=== PATIENT | female | born 1985 | race Two or more races ===

== ENCOUNTER 2019-07-31 12:10 | Inpatient (IN) | payer OTHER ==
[~2019-07-31] VITALS: Ht 149.9 cm; Wt 68.9 kg
[2019-07-31] MEDS ORDERED: MAG HYDROX/ALUMINUM HYD/SIMETH 30 ML ORAL.SUSP PO PRN ×2 (12:45→17:30)
[2019-07-31] MEDS ORDERED: NALBUPHINE 10 MG/ML AMPUL. IV PRN (12:45)
[2019-07-31] MEDS ORDERED: 0.9 % SODIUM CHLORIDE 10 ML DISP.SYRIN. IV PRN ×3 (12:45→17:30)
[2019-07-31] MEDS ORDERED: TERBUTALINE 1 MG/ML VIAL. SQ PRN (12:45)
[2019-07-31] MEDS ORDERED: fentaNYL PF VIAL 100 MCG/2 ML VIAL IV PRN (12:45)
[2019-07-31] MEDS ORDERED: OXYTOCIN 30 UNIT/500 ML PREMIX 500 ML IV PRN ×2 (12:45→17:30)
[2019-07-31] MEDS ORDERED: LIDOCAINE 1% PF 30 ML VIAL. INJ PRN (12:45)
[2019-07-31 12:50] VITALS: BP 137/83
[2019-07-31 13:17] LABS: BILIRUBIN,URINE NEGATIVE (NEG); CLARITY,URINE CLEAR; COLOR,URINE YELLOW; CREATININE,RANDOM URINE < 13.0 mg/dL (Not Establ.); NITRITE,URINE NEGATIVE (NEG); PH,URINE 6.5; PROTEIN,URINE NEGATIVE (NEG-TRACE); UROBILINOGEN,URINE 0.2 mg/dL (0.2 mg/dL)
[2019-07-31 13:26] LABS: BASO # 0.1 x10^3/uL (0.0-0.2); BASO % 1 % (0-3); EOS # 0.1 x10^3/uL (0.0-0.7); EOS % 1 % (0-3); HEMATOCRIT 37.3 % (36.0-47.0); HEMOGLOBIN 12.5 g/dL (12.0-15.5); LYMPH # 2.6 x10^3/uL (1.0-4.8); LYMPH % 33 % (24-48); MEAN CORPUSCULAR HEMOGLOBIN 30 pg (25-35); MEAN CORPUSCULAR HGB CONC 34 g/dL (31-37); MEAN CORPUSCULAR VOLUME 88 fL (79-100); MONO # 0.7 x10^3/uL (0.0-1.1); MONO % 9 % (0-9); NEUT # 4.5 x10^3/uL (1.8-7.7); NEUT % 56 % (31-73); PLATELET COUNT 163 x10^3/uL (140-400); RED BLOOD COUNT 4.26 x10^6/uL (3.50-5.40); RED CELL DISTRIBUTION WIDTH 13.5 % (11.5-14.5)
[2019-07-31 13:41] LABS: ALBUMIN 2.7 g/dL (3.4-5.0); ALBUMIN/GLOBULIN RATIO 0.6 (1.0-1.7); CALCIUM 8.6 mg/dL (8.5-10.1); CREATININE 0.6 mg/dL (0.6-1.0); GFR 115.9; POTASSIUM 3.6 mmol/L (3.5-5.1); TOTAL BILIRUBIN 0.3 mg/dL (0.2-1.0); URIC ACID 5.2 mg/dL (2.6-6.0)
[2019-07-31] MEDS ORDERED: PNV1TABL25 PO (13:47)
[2019-07-31 13:50] LABS: SQUAMOUS EPITHELIAL CELL,UR MOD /LPF
[2019-07-31 13:51] LABS: BACTERIA,URINE MODERATE /HPF (0-FEW)
[2019-07-31] MEDS: IV RINGERS,LACTATED 1000ML 1,000 ML IV SCH ×2 (14:28→21:00)
[2019-07-31] MEDS: OXYTOCIN 30 UNIT/500 ML PREMIX 500 ML IV PRN ×2 (14:36→20:22)
--- NOTE | 2019-07-31 17:29 | PDOC1 ---
OB - History Hx of Present Care: Good Care Obstetrical Complications: Gestational Hypertension Medical Complications: None Past Family/Social History * Past Medical, Surgical, Family and Obstetric Histories reviewed from chart. Rubella: Immune RPR/VDRL: Negative GBS Status: Negative HBsAG: Negative OB - Chief Complaint & HPI Date of Admission: Date of Admission: Jul 31, 2019 at 12:10 Chief Complaint/History : 4 Para: 3 EGA: 38 Reason for admission: induction of labor Indication for induction: other (Gestational HTN) Admission Nurse Assessment Rev: Yes OB - Admission Exam Physical Exam Vitals: VS - Last 72 Hours, by Label Date Time Temp Pulse Resp B/P (MAP) Pulse Ox O2 Delivery O2 Flow Rate FiO2 07/31/19 12:50 98.1 63 20 137/83 (101) 98.1 HEENT: Normal Heart: Regular Rate Lungs: Clear Abdomen: Gravid, Non tender, Soft Extremities: Edema Reflexes: Normal Cervical Dilatation: 2cm Effacement: 75% Station: -3 Membranes: Intact Heart Rate: Normal Accelerations: Accelerations Present Decelerations: No decelerations Contractions on Admission: None Text A: 38 wks IUP Gestational HTN P: Admit for IOL pitocin for gestational HTN. WALTER PLUMMER Jr, MD Jul 31, 2019 17:29
[2019-07-31] MEDS ORDERED: HYDROCORTISONE 1% TOPICAL OINTMENT 30GM TUBE. TP PRN (17:30)
[2019-07-31] MEDS ORDERED: PHENYLEPH/MINERAL OIL/PETROLAT RECTAL OINTMENT TUBE. RC PRN (17:30)
[2019-07-31] MEDS ORDERED: MMR per PROTOCOL. MC PRN (17:30)
[2019-07-31] MEDS ORDERED: BENZOCAINE 20% TOPICAL AEROSOL SPRAY 57GM CAN. TP PRN (17:30)
[2019-07-31] MEDS ORDERED: ACETAMINOPHEN 325 MG TABLET. PO PRN (17:30)
[2019-07-31] MEDS ORDERED: MAGNESIUM HYDROXIDE 2,400 MG/30 ML ORAL.SUSP. PO PRN (17:30)
[2019-07-31] MEDS ORDERED: ZOLPIDEM 5 MG TABLET. PO PRN (17:30)
[2019-07-31] MEDS ORDERED: diphenhydrAMINE HCL 25 MG CAPSULE PO PRN (17:30)
[2019-07-31] MEDS ORDERED: SIMETHICONE 80 MG TAB.CHEW PO PRN (17:30)
--- NOTE | 2019-07-31 17:30 | PDOC ---
VAGINAL DELIVERY DATE DATE: 07/31/19 TIME: 17:29 : 4 Para: 4 EGA: 38 VAGINAL DELIVERY: VTX VACCUM ASSISTED: No PLACENTA: Spontaneous 6/8 SEX: Male WEIGHT Weight [6 lbs. 9 oz ] Nuchal Cord: No Amniotic Fluid: Clear PAIN: Natural EPISIOTOMY: No EXTENSION: No EBL 300 ml COMPLICATIONS none CONDITION pt. stable Signs of Intrauterine Infectio: None Shoulder Dystocia: No WALTER PLUMMER Jr, MD Jul 31, 2019 17:30
[2019-07-31] MEDS: IBUPROFEN 400 MG TABLET. PO PRN (19:29)
[2019-07-31] MEDS ORDERED: miSOPROStol 200 MCG TABLET PR ONE (20:15)
[2019-08-01] VITALS (9 sets, daily range): BP systolic 109–140; BP diastolic 52–92
--- NOTE | 2019-08-01 01:05 | NUR ---
Fundus checked at this time. Pt. bleeding filled up her pad/underwear. Pt. gotten up to the bathroom, pads changed, no active bleeding noted while on the toilet, pt. voided at this time. Dark blood noted in the bottom of the toilet. Pt. helped back to bed. VS taken and stable. Pads weighed and weighed 85 gm. Report given to charge nurse. Charge nurse called Dr. Cuevas. Orders received for stat H&H and 30 units in 500 ml of pitocin.
[2019-08-01] MEDS: OXYTOCIN 30 UNIT/500 ML PREMIX 500 ML IV PRN ×2 (01:25→04:24)
[2019-08-01 01:51] LABS: HEMATOCRIT 29.1 % (36.0-47.0); HEMOGLOBIN 9.6 g/dL (12.0-15.5); RED BLOOD COUNT 3.31 x10^6/uL (3.50-5.40); RED CELL DISTRIBUTION WIDTH 13.2 % (11.5-14.5); WHITE BLOOD COUNT 14.7 x10^3/uL (4.0-11.0)
--- NOTE | 2019-08-01 03:00 | NUR ---
Fundal check done. Fundus firm, midline, pt. had moderate bleeding with massage. Pt. cleaned up, and gotten up to the bathroom, no active bleeding on the toilet noted. Pads weighed and weighed 160 gm. Charge nurse notified. Pitocin increased to 300 ml/hr. Dr. Cuevas notified of blood loss, and CBC results. No new orders received. VSS.
[2019-08-01] MEDS: IV RINGERS,LACTATED 1000ML 1,000 ML IV SCH ×2 (05:00→13:00)
[2019-08-01 07:09] LABS: BASO # 0.1 x10^3/uL (0.0-0.2); BASO % 0 % (0-3); EOS # 0.1 x10^3/uL (0.0-0.7); EOS % 1 % (0-3); HEMATOCRIT 26.9 % (36.0-47.0); LYMPH # 3.2 x10^3/uL (1.0-4.8); LYMPH % 25 % (24-48); MEAN CORPUSCULAR HEMOGLOBIN 29 pg (25-35); MEAN CORPUSCULAR HGB CONC 33 g/dL (31-37); MEAN CORPUSCULAR VOLUME 88 fL (79-100); MONO # 0.9 x10^3/uL (0.0-1.1); MONO % 7 % (0-9); NEUT # 8.4 x10^3/uL (1.8-7.7); NEUT % 66 % (31-73); PLATELET COUNT 145 x10^3/uL (140-400); RED BLOOD COUNT 3.07 x10^6/uL (3.50-5.40); RED CELL DISTRIBUTION WIDTH 13.2 % (11.5-14.5); WHITE BLOOD COUNT 12.7 x10^3/uL (4.0-11.0)
[2019-08-01] MEDS: DOCUSATE SODIUM 100 MG CAPSULE. PO PRN (08:58)
[2019-08-01] MEDS: FERROUS SULFATE 325 MG TABLET. PO SCH ×2 (08:58→17:00)
--- NOTE | 2019-08-01 09:08 | PDOC ---
OB Progress Note Date of Service 08/01/19 Time of Evaluation 0905 Notes Pt. feeling better. She had moderate bleeding last night. Hgb stable. Pt. asymptomatic. Scant bleeding this am. Lab Laboratory Tests Test 07/31/19 12:30 07/31/19 13:03 08/01/19 01:45 08/01/19 06:42 Urine Collection Type Unknown Urine Color Yellow Urine Clarity Clear Urine pH 6.5 Urine Specific [place] <=1.005 Urine Protein Negative mg/dL (NEG-TRACE) Urine Glucose (UA) Negative mg/dL (NEG) Urine Ketones (Stick) Negative mg/dL (NEG) Urine Blood Negative (NEG) Urine Nitrite Negative (NEG) Urine Bilirubin Negative (NEG) Urine Urobilinogen Dipstick 0.2 mg/dL (0.2 mg/dL) Urine Leukocyte Esterase Negative (NEG) Urine RBC 1-2 /HPF (0-2) Urine WBC 1-4 /HPF (0-4) Urine Squamous Epithelial Cells Mod /LPF Urine Bacteria Moderate /HPF (0-FEW) Urine Random Creatinine < 13.0 mg/dL (Not Establ.) Urine Random Total Protein < 6.0 mg/dL (Not Establ.) Urine Protein/Creatinine Ratio mg/g (0-200) White Blood Count 8.0 x10^3/uL (4.0-11.0) 14.7 x10^3/uL (4.0-11.0) 12.7 x10^3/uL (4.0-11.0) Red Blood Count 4.26 x10^6/uL (3.50-5.40) 3.31 x10^6/uL (3.50-5.40) 3.07 x10^6/uL (3.50-5.40) Hemoglobin 12.5 g/dL (12.0-15.5) 9.6 g/dL (12.0-15.5) 9.0 g/dL (12.0-15.5) Hematocrit 37.3 % (36.0-47.0) 29.1 % (36.0-47.0) 26.9 % (36.0-47.0) Mean Corpuscular Volume 88 fL (79-100) 88 fL (79-100) 88 fL (79-100) Mean Corpuscular Hemoglobin 30 pg (25-35) 29 pg (25-35) 29 pg (25-35) Mean Corpuscular Hemoglobin Concent 34 g/dL (31-37) 33 g/dL (31-37) 33 g/dL (31-37) Red Cell Distribution Width 13.5 % (11.5-14.5) 13.2 % (11.5-14.5) 13.2 % (11.5-14.5) Platelet Count 163 x10^3/uL (140-400) 148 x10^3/uL (140-400) 145 x10^3/uL (140-400) Neutrophils (%) (Auto) 56 % (31-73) 66 % (31-73) Lymphocytes (%) (Auto) 33 % (24-48) 25 % (24-48) Monocytes (%) (Auto) 9 % (0-9) 7 % (0-9) Eosinophils (%) (Auto) 1 % (0-3) 1 % (0-3) Basophils (%) (Auto) 1 % (0-3) 0 % (0-3) Neutrophils # (Auto) 4.5 x10^3/uL (1.8-7.7) 8.4 x10^3/uL (1.8-7.7) Lymphocytes # (Auto) 2.6 x10^3/uL (1.0-4.8) 3.2 x10^3/uL (1.0-4.8) Monocytes # (Auto) 0.7 x10^3/uL (0.0-1.1) 0.9 x10^3/uL (0.0-1.1) Eosinophils # (Auto) 0.1 x10^3/uL (0.0-0.7) 0.1 x10^3/uL (0.0-0.7) Basophils # (Auto) 0.1 x10^3/uL (0.0-0.2) 0.1 x10^3/uL (0.0-0.2) Sodium Level 139 mmol/L (136-145) Potassium Level 3.6 mmol/L (3.5-5.1) Chloride Level 105 mmol/L (98-107) Carbon Dioxide Level 24 mmol/L (21-32) Anion Gap 10 (6-14) Blood Urea Nitrogen 5 mg/dL (7-20) Creatinine 0.6 mg/dL (0.6-1.0) Estimated GFR (Cockcroft-Gault) 115.9 BUN/Creatinine Ratio 8 (6-20) Glucose Level 98 mg/dL (70-99) Uric Acid 5.2 mg/dL (2.6-6.0) Calcium Level 8.6 mg/dL (8.5-10.1) Total Bilirubin 0.3 mg/dL (0.2-1.0) Aspartate Amino Transf (AST/SGOT) 31 U/L (15-37) Alanine Aminotransferase (ALT/SGPT) 24 U/L (14-59) Alkaline Phosphatase 404 U/L (46-116) Total Protein 7.0 g/dL (6.4-8.2) Albumin 2.7 g/dL (3.4-5.0) Albumin/Globulin Ratio 0.6 (1.0-1.7) Treponema pallidum Antibody Reactive (Nonreactive) Laboratory Tests Test 07/31/19 12:30 07/31/19 13:03 08/01/19 01:45 08/01/19 06:42 Urine Collection Type Unknown Urine Color Yellow Urine Clarity Clear Urine pH 6.5 Urine Specific [place] <=1.005 Urine Protein Negative mg/dL (NEG-TRACE) Urine Glucose (UA) Negative mg/dL (NEG) Urine Ketones (Stick) Negative mg/dL (NEG) Urine Blood Negative (NEG) Urine Nitrite Negative (NEG) Urine Bilirubin Negative (NEG) Urine Urobilinogen Dipstick 0.2 mg/dL (0.2 mg/dL) Urine Leukocyte Esterase Negative (NEG) Urine RBC 1-2 /HPF (0-2) Urine WBC 1-4 /HPF (0-4) Urine Squamous Epithelial Cells Mod /LPF Urine Bacteria Moderate /HPF (0-FEW) Urine Random Creatinine < 13.0 mg/dL (Not Establ.) Urine Random Total Protein < 6.0 mg/dL (Not Establ.) Urine Protein/Creatinine Ratio mg/g (0-200) White Blood Count 8.0 x10^3/uL (4.0-11.0) 14.7 x10^3/uL (4.0-11.0) 12.7 x10^3/uL (4.0-11.0) Red Blood Count 4.26 x10^6/uL (3.50-5.40) 3.31 x10^6/uL (3.50-5.40) 3.07 x10^6/uL (3.50-5.40) Hemoglobin 12.5 g/dL (12.0-15.5) 9.6 g/dL (12.0-15.5) 9.0 g/dL (12.0-15.5) Hematocrit 37.3 % (36.0-47.0) 29.1 % (36.0-47.0) 26.9 % (36.0-47.0) Mean Corpuscular Volume 88 fL (79-100) 88 fL (79-100) 88 fL (79-100) Mean Corpuscular Hemoglobin 30 pg (25-35) 29 pg (25-35) 29 pg (25-35) Mean Corpuscular Hemoglobin Concent 34 g/dL (31-37) 33 g/dL (31-37) 33 g/dL (31-37) Red Cell Distribution Width 13.5 % (11.5-14.5) 13.2 % (11.5-14.5) 13.2 % (11.5-14.5) Platelet Count 163 x10^3/uL (140-400) 148 x10^3/uL (140-400) 145 x10^3/uL (140-400) Neutrophils (%) (Auto) 56 % (31-73) 66 % (31-73) Lymphocytes (%) (Auto) 33 % (24-48) 25 % (24-48) Monocytes (%) (Auto) 9 % (0-9) 7 % (0-9) Eosinophils (%) (Auto) 1 % (0-3) 1 % (0-3) Basophils (%) (Auto) 1 % (0-3) 0 % (0-3) Neutrophils # (Auto) 4.5 x10^3/uL (1.8-7.7) 8.4 x10^3/uL (1.8-7.7) Lymphocytes # (Auto) 2.6 x10^3/uL (1.0-4.8) 3.2 x10^3/uL (1.0-4.8) Monocytes # (Auto) 0.7 x10^3/uL (0.0-1.1) 0.9 x10^3/uL (0.0-1.1) Eosinophils # (Auto) 0.1 x10^3/uL (0.0-0.7) 0.1 x10^3/uL (0.0-0.7) Basophils # (Auto) 0.1 x10^3/uL (0.0-0.2) 0.1 x10^3/uL (0.0-0.2) Sodium Level 139 mmol/L (136-145) Potassium Level 3.6 mmol/L (3.5-5.1) Chloride Level 105 mmol/L (98-107) Carbon Dioxide Level 24 mmol/L (21-32) Anion Gap 10 (6-14) Blood Urea Nitrogen 5 mg/dL (7-20) Creatinine 0.6 mg/dL (0.6-1.0) Estimated GFR (Cockcroft-Gault) 115.9 BUN/Creatinine Ratio 8 (6-20) Glucose Level 98 mg/dL (70-99) Uric Acid 5.2 mg/dL (2.6-6.0) Calcium Level 8.6 mg/dL (8.5-10.1) Total Bilirubin 0.3 mg/dL (0.2-1.0) Aspartate Amino Transf (AST/SGOT) 31 U/L (15-37) Alanine Aminotransferase (ALT/SGPT) 24 U/L (14-59) Alkaline Phosphatase 404 U/L (46-116) Total Protein 7.0 g/dL (6.4-8.2) Albumin 2.7 g/dL (3.4-5.0) Albumin/Globulin Ratio 0.6 (1.0-1.7) Treponema pallidum Antibody Reactive (Nonreactive) Medications Current Medications Sodium Chloride (Normal Saline Flush) 3 ml QSHIFT PRN IV AFTER MEDS AND BLOOD DRAWS; Start 07/31/19 at 12:45 Al Hydroxide/Mg Hydroxide (Mylanta Plus Xs) 30 ml PRN Q4HRS PRN PO HEARTBURN / GAS; Start 07/31/19 at 12:45 Sodium Chloride (Normal Saline Flush) 3 ml QSHIFT PRN IV AFTER MEDS AND BLOOD DRAWS; Start 07/31/19 at 12:45 Ringer's Solution 1,000 ml @ 125 mls/hr Q8H IV Last administered on 07/31/19at 14:28; Start 07/31/19 at 13:00 Nalbuphine HCl (Nubain) 10 mg PRN Q1HR PRN IV Severe labor pain; Start 07/31/19 at 12:45 Fentanyl Citrate (Fentanyl 2ml Vial) 100 mcg PRN Q10MIN PRN IV Labor pain; Start 07/31/19 at 12:45 Terbutaline Sulfate (Brethine) 0.25 mg 1X PRN PRN SQ SEE COMMENTS; Start 07/31/19 at 12:45; Stop 08/01/19 at 12:44 Lidocaine HCl (Xylocaine 1% Pf 30ml Vial) 30 ml 1X PRN PRN INJ SEE COMMENTS; Start 07/31/19 at 12:45; Stop 08/02/19 at 12:44 Oxytocin/Sodium Chloride 500 ml @ 0 mls/hr CONT PRN IV SEE I/O RECORD Last administered on 08/01/19at 04:24; Start 07/31/19 at 12:45 Oxytocin/Sodium Chloride 500 ml @ 0 mls/hr CONT PRN IV SEE I/O RECORD; Start 07/31/19 at 12:45 Oxytocin/Sodium Chloride 500 ml @ 0 mls/hr CONT PRN PRN IV Post delivery bleeding Last administered on 08/01/19at 01:25; Start 07/31/19 at 12:45 Sodium Chloride (Normal Saline Flush) 10 ml QSHIFT PRN IV AFTER MEDS AND BLOOD DRAWS; Start 07/31/19 at 17:30 Oxytocin/Sodium Chloride 500 ml @ 62.5 mls/hr CONT PRN IV SEE I/O RECORD; Start 07/31/19 at 17:30; Stop 08/01/19 at 01:29; Status DC Acetaminophen (Tylenol) 650 mg PRN Q6HRS PRN PO MILD PAIN / TEMP; Start 07/31/19 at 17:30 Ibuprofen (Motrin) 800 mg PRN Q8HRS PRN PO INFLAMMATION/PAIN PREVENTION Last administered on 07/31/19at 19:29; Start 07/31/19 at 17:30 Docusate Sodium (Colace) 100 mg PRN BID PRN PO CONSTIPATION Last administered on 08/01/19at 08:58; Start 07/31/19 at 17:30 Magnesium Hydroxide (Milk Of Magnesia) 2,400 mg PRN DAILY PRN PO CONSTIPATION; Start 07/31/19 at 17:30 Al Hydroxide/Mg Hydroxide (Mylanta Plus Xs) 30 ml PRN Q4HRS PRN PO HEARTBURN / GAS; Start 07/31/19 at 17:30 Simethicone (Gas-X) 80 mg PRN AFTMEALHC PRN PO GAS / BLOATING; Start 07/31/19 at 17:30 Diphenhydramine HCl (Benadryl) 25 mg PRN Q6HRS PRN PO ITCHING; Start 07/31/19 at 17:30 Benzocaine (Americaine) 1 spray PRN QID PRN TP TOPICAL PAIN; Start 07/31/19 at 17:30 Phenyleph/Shark Oil/Min Oil/Petrol (Preparation H) 1 edda PRN QID PRN RC RECTAL PAIN; Start 07/31/19 at 17:30 Hydrocortisone (Cortaid) 1 edda PRN QID PRN TP PERINEAL PAIN; Start 07/31/19 at 17:30 Ferrous Sulfate (Feosol) 325 mg BIDWMEALS PO Last administered on 08/01/19at 08:58; Start 08/01/19 at 08:00 Zolpidem Tartrate (Ambien) 5 mg PRN QHS PRN PO INSOMNIA, MAY REPEAT X1; Start 07/31/19 at 17:30 Info (Do NOT chart on this placeholder) 1 ea 1X PRN PRN MC SEE COMMENTS; Start 07/31/19 at 17:30 Info (Do NOT chart on this placeholder) 1 ea 1X PRN PRN MC SEE COMMENTS; Start 07/31/19 at 17:30 Oxycodone/ Acetaminophen (Percocet 5/325) 2 tab PRN Q4HRS PRN PO MODERATE PAIN, SEVERE PAIN; Start 07/31/19 at 17:30 Misoprostol (Cytotec 200mcg Tab) 800 mcg 1X ONCE TX Last administered on 07/31/19at 20:21; Start 07/31/19 at 20:15; Stop 07/31/19 at 20:17; Status DC Active Scripts Active Reported Tablet (Pnv Cmb#95/Ferrous Fumarate/Fa) 1 Each Tablet 1 Tab PO DAILY 30 Days Exam Abd: soft, non tender, fundus firm Assessment PPD#1 s/p Syphilis screen positive Plan of Care: Continue current Tx, Mgmt (If confirmatory testing for syphilis not back by tomorrow, then start treatment.) WALTER PLUMMER Jr, MD Aug 01, 2019 09:08
[2019-08-01] MEDS ORDERED: PENICILLIN G BENZATHINE LA 2,400,000 UNIT/4 ML DISP.SYRIN. IM ONE (16:30)
[2019-08-01] MEDS: oxyCODONE/APAP 5/325 1 TAB TABLET PO PRN (16:33)
[2019-08-02] MEDS: DOCUSATE SODIUM 100 MG CAPSULE. PO PRN ×2 (04:38→17:18)
[2019-08-02] MEDS: IBUPROFEN 400 MG TABLET. PO PRN ×2 (04:38→17:18)
[2019-08-02 04:39] VITALS: BP 127/82
[2019-08-02 08:01] VITALS: BP 130/91
--- NOTE | 2019-08-02 11:53 | PDOC3 ---
OB DISCHARGE SUMMARY DATE OF ADMISSION: 07/31/19 DATE OF DISCHARGE: 08/02/19 REASON FOR ADMISSION: Induction of labor (Gestational HTN) INTRAPARTUM PROCEDURES: Spontanous Vag Deliv DISCHARGE DIAGNOSIS: Term Delivered DISCHARGE INFORMATION: Activity (ad claritza), Diet (regular), Instructions (Pelvic rest x 6 wks) HOSPITAL COURSE Term gestation with gestational HTN delivered vaginally without complications. WALTER PLUMMER Jr, MD Aug 02, 2019 11:53
--- NOTE | 2019-08-02 11:55 | DISCH ---
DISCHARGE INSTRUCTIONS Condition on Discharge Condition on Discharge: Stable Activity After Discharge Activity Instructions for Disc: Activity as tolerated Lifting Instructions after Dis: No heavy lifting Driving Instructions after Dis: Do not drive today Diet after Discharge Diet after Discharge: Regular Contacting the DRJennifer after DC Call your doctor for: Concerns you may have Follow-Up Follow up with: Dr. Berrios in 1 wk WALTER PLUMMER Jr, MD Aug 02, 2019 11:54
[2019-08-02] MEDS ORDERED: NAPR500T8 PO (11:56)
[2019-08-02] MEDS ORDERED: HYDR-3164 PO (11:56)
[2019-08-02] MEDS ORDERED: FERR325T72 PO (11:56)
[2019-08-02] MEDS: FERROUS SULFATE 325 MG TABLET. PO SCH ×2 (12:27→17:20)
[2019-08-02 12:30] VITALS: BP 140/87
[2019-08-02] MEDS ORDERED: FLU VAX QS 2019-20 (36MOS+)/PF 0.5 ML SYRINGE. VAX IM ONE (14:00)
[2019-08-02 16:57] VITALS: BP 135/81
[2019-08-02] MEDS: oxyCODONE/APAP 5/325 1 TAB TABLET PO PRN (17:19)
--- NOTE | 2019-08-02 17:50 | NUR ---
This nurse asked pt. if she would like to use the chief information security officer phone for education and instructions. This nurse and nursing preceptor used chief information security officer phone earlier in this shift. Pt. declined chief information security officer phone offer and preferred to use son to translate all information. This nurse educated pt. on discharge instructions and boarding policies. Copies of Post Home instructions were given and reviewed. This nurse went over information in the post care booklet "A New Beginning". Home prescriptions were provided and reviewed. All questions were answered at this time. Will continue to monitor.
== END 2019-08-02 19:06 | disposition home or self-care (01) | DRG 807 ==
LOC: OBSVTOIN 12:10 → 3 SO LND 12:10 → 3 NORTH 08-01
PROVIDERS: ADMIT Specialist; ATTEND Specialist
PROC: 10E0XZZ Delivery of Products of Conception, External Approach (ICD-10-PCS; principal; 2019-07-31)
DX: O13.4 Gestational [pregnancy-induced] hypertension without significant proteinuria, complicating childbirth (principal); Z37.0 Single live birth; Z3A.38 38 weeks gestation of pregnancy
CPT/HCPCS: 36415; 80053; 81001; 82570; 84156; 84550; 85025; 85027; 86592; 86593; 86850; 86900; 86901; 87086; 87186; 90471; 90686; G0378; J0561; J2590; J7120